=== PATIENT | male | born 1985 | race Hispanic/Latino ===

== ENCOUNTER 2017-10-23 14:42 | Emergency (ER) | payer SELFPAY ==
--- NOTE | 2017-10-23 15:48 | CT ---
NONCONTRAST HEAD CT: Date 10/23/17 HISTORY: Patient fell off truck bed. Post-traumatic pain. COMPARISON: None. TECHNIQUE: A noncontrast head CT is performed from the skull base to the skull vertex. FINDINGS: No parenchymal hemorrhage or extra-axial hematoma. No midline shift. Basilar cisterns are patent. Bra in volume is age-appropriate. Cortical george-white matter differentiation is preserved. Ventricles and sulci are patent and symmetric. Adequate aeration of the sinuses and mastoid air cells. Calvarium is intact. Minimal posterior right scalp soft tissue swelling at the level of the parietal bone. IMPRESSION: Minimal post-traumatic right parietal scalp soft tissue swelling. No intracranial post-traumatic sequ elae. POS: [facility]
--- NOTE | 2017-10-23 15:49 | CT ---
CT CERVICAL SPINE: Date: 10/23/17 Multiple axial tomograms obtained of the cervical spine with multiplanar reconstruction. HISTORY: Fall with injury to neck. Neck pain. FINDINGS: Cervical vertebra maintain normal height and alignment. No evidence of fracture identified. IMPRESSION: No evidence of cervical spine fracture. POS: [facility]
== END 2017-10-23 16:00 | disposition home or self-care (01) ==
LOC: MADERS 14:42
DX: S06.0X9A Concussion with loss of consciousness of unspecified duration, initial encounter (principal); S00.03XA Contusion of scalp, initial encounter; M54.2 Cervicalgia; W17.89XA Other fall from one level to another, initial encounter
CPT/HCPCS: 70450; 72125